=== PATIENT | female | born 1955 | race Caucasian/White ===

== ENCOUNTER 2017-08-20 16:00 | Observation (INO) | payer OTHER ==
[~2017-08-20] VITALS: Ht 170.2 cm; Wt 73.5 kg
[~2017-08-20 16:00] MED LIST: CARDIZEM CD180 MG PO; CELEXA20 MG PO; CIPRO500 MG PO; DOES NOT REMEMBER; FLAGYL500 MG PO; MOBIC15 MG PO; ONDANSETRON HCL4 M2 PO
[2017-08-20 16:36] LABS: URINE BILIRUBIN NEGATIVE (Negative); URINE BLOOD 3+ (Negative); URINE CLARITY CLEAR; URINE COLOR YELLOW; URINE GLUCOSE-RANDOM NEGATIVE (Negative); URINE KETONES TRACE (Negative); URINE LEUKOCYTES NEGATIVE (Negative); URINE NITRITE POSITIVE (Negative); URINE PROTEIN TRACE (Negative); URINE SPECIFIC GRAVITY 1.015 (1.005-1.030); URINE UROBILINOGEN 0.2 E.U./dl (0.2-1.0)
[2017-08-20 16:55] LABS: ABSOLUTE BASOPHILS 0.1 thou/uL (0.0-0.2); ABSOLUTE EOSINOPHILS 0.2 thou/uL (0.0-0.7); ABSOLUTE LYMPHOCYTES 1.1 thou/uL (0.8-5.3); ABSOLUTE MONOCYTES 0.7 thou/uL (0.0-1.2); ABSOLUTE NEUTROPHILS 8.1 thou/uL (1.6-8.1); BASOPHILS 0.7 %; EOSINOPHILS 1.7 %; HEMATOCRIT 46.5 % (37.0-47.0); HEMOGLOBIN 16.3 gm/dL (12.0-15.0); LYMPHOCYTES 10.8 %; MCH 35.1 pg (26.0-34.0); MCHC 35.1 g/dL (28.0-37.0); MONOCYTES 6.8 %; MPV 9.5 fl. (7.2-11.1); NUCLEATED RBCS 0 /100WBC; PLATELET COUNT* 170 thou/uL (150-400); RBC 4.65 mil/uL (4.20-5.00); RDW-CV 12.3 % (10.5-14.5); WBC 10.2 thou/uL (4.0-11.0)
[2017-08-20 16:59] LABS: SQUAMOUS 4-10 Moderate /LPF (0-3); URINE WBC None Seen /HPF (0-5)
[2017-08-20 17:00] LABS: CASTS None Seen /LPF (None Seen); CRYSTALS None Seen /LPF (None Seen); MUCUS 0-3 Light strn/LPF (None Seen)
[2017-08-20 17:12] LABS: CALCIUM 9.1 mg/dL (8.5-10.1); CREATININE 0.8 mg/dL (0.6-1.3); POTASSIUM 3.5 mmol/L (3.5-5.1)
--- NOTE | 2017-08-20 17:15 | NUR ---
KENNEDY NOTIFIED UPON PT RETURN FROM CT. PT WAS NOT CONNECTED TO MONITOR SHE WAS NOT CONNECTED PRIOR TO GOING TO CT
[2017-08-20 17:16] LABS: TOTAL BILIRUBIN 0.5 mg/dL (<0.1-1.0)
[2017-08-20 22:08] VITALS: BP 95/50
[2017-08-20 23:09] VITALS: BP 107/52
--- NOTE | 2017-08-21 05:44 | NUR ---
ALERT AND ORIENTED X4. UP AD SALVATORE TO BATHROOM. STRAINING ALL URINE. DENIED NEED FOR PAIN OR NAUSEA MEDICATION. REMAINS NPO AT THIS TIME. NO C/O DIFFICULTY WITH VOIDING. CALL LIGHT WITHIN REACH. IVF INFUSING WITHOUT DIFFICULTY.
[2017-08-21 07:40] LABS: ABSOLUTE EOSINOPHILS 0.2 thou/uL (0.0-0.7); ABSOLUTE LYMPHOCYTES 1.9 thou/uL (0.8-5.3); ABSOLUTE MONOCYTES 0.7 thou/uL (0.0-1.2); ABSOLUTE NEUTROPHILS 4.6 thou/uL (1.6-8.1); BASOPHILS 0.5 %; EOSINOPHILS 2.9 %; HEMATOCRIT 43.1 % (37.0-47.0); HEMOGLOBIN 14.8 gm/dL (12.0-15.0); MCH 34.9 pg (26.0-34.0); MCHC 34.3 g/dL (28.0-37.0); MCV 101.8 fL (80.0-100.0); MPV 9.7 fl. (7.2-11.1); NUCLEATED RBCS 0 /100WBC; PLATELET COUNT* 156 thou/uL (150-400); POLYS 61.6 %; RBC 4.24 mil/uL (4.20-5.00); RDW-CV 12.4 % (10.5-14.5); WBC 7.4 thou/uL (4.0-11.0)
[2017-08-21 07:55] LABS: ALBUMIN 3.1 g/dL (3.4-5.0); CALCIUM 8.5 mg/dL (8.5-10.1); CREATININE 0.7 mg/dL (0.6-1.3); TOTAL BILIRUBIN 0.5 mg/dL (<0.1-1.0); TOTAL PROTEIN 5.9 g/dL (6.4-8.2)
[2017-08-21 08:00] VITALS: BP 107/52
[2017-08-21 15:43] VITALS: BP 125/74
[2017-08-21] MEDS ORDERED: CIPRO500 M1 PO (17:36)
[2017-08-21] MEDS ORDERED: FLOMAX0.4 MG PO (17:38)
[2017-08-21 17:39] VITALS: BP 125/74
== END 2017-08-21 18:00 | disposition home or self-care (01) ==
LOC: M.ERS 16:00 → M.TBA-ER 17:48 → M.ORTHSURG 17:48
PROVIDERS: Physician Assistant; ADMIT Internal Medicine
DX: N13.30 Unspecified hydronephrosis (principal); N13.4 Hydroureter; N20.1 Calculus of ureter; N20.0 Calculus of kidney; N39.0 Urinary tract infection, site not specified; I10 Essential (primary) hypertension; F17.200 Nicotine dependence, unspecified, uncomplicated; Z90.710 Acquired absence of both cervix and uterus